=== PATIENT | female | born 1980 | race Caucasian/White ===

== ENCOUNTER → 2016-08-17 | Outpatient (CLI) | payer BC ==
[2016-08-17 09:54] LABS: HEMOGLOBIN 14.5 gm/dl (12.3-15.3); RED BLOOD COUNT 4.84 M/UL (4.00-5.10); WHITE BLOOD COUNT 4.8 K/UL (4.5-11.0)
[2016-08-17 10:13] LABS: BUN/CREATININE RATIO 17 (0-10)
== END ==
LOC: LAB 08:33
PROVIDERS: Nurse Practitioner
DX: R53.83 Other fatigue (principal); R63.5 Abnormal weight gain; R73.03 Prediabetes
CPT/HCPCS: 36415; 80048; 80061; 83036; 84443; 85027; 93005

== ENCOUNTER → 2016-11-10 | Outpatient (CLI) | payer BC | LOC: RAD 17:51 | DX: R10.0 Acute abdomen (principal) | CPT/HCPCS: 74022 ==

== ENCOUNTER → 2020-05-26 | Outpatient (CLI) | payer BC, OTHER | LOC: RAD 10:15 | DX: M54.2 Cervicalgia (principal); M43.8X2 Other specified deforming dorsopathies, cervical region | CPT/HCPCS: 72040 ==

== ENCOUNTER 2020-09-02 05:21 | Emergency (ER) | payer BC, OTHER ==
[2020-09-02 05:43] LABS: HEMOGLOBIN 13.8 gm/dl (12.3-15.3); RED BLOOD COUNT 4.43 M/UL (4.00-5.10); WHITE BLOOD COUNT 7.5 K/UL (4.5-11.0)
[2020-09-02 06:02] LABS: BUN/CREATININE RATIO 12 (0-10)
== END 2020-09-02 06:25 | disposition home or self-care (01) ==
LOC: ER1 05:21
PROVIDERS: Emergency Medicine
DX: R00.2 Palpitations (principal)
CPT/HCPCS: 71045; 80053; 82550; 82553; 83735; 83874; 84100; 84439; 84443; 84484; 85025; 85610; 85730; 93005; 99285

== ENCOUNTER → 2020-09-18 | Outpatient (CLI) | payer BC, OTHER | LOC: ECHO 12:52 | DX: R07.9 Chest pain, unspecified (principal); R06.02 Shortness of breath; I34.0 Nonrheumatic mitral (valve) insufficiency; I07.1 Rheumatic tricuspid insufficiency | CPT/HCPCS: ECHO; 93306 ==

== ENCOUNTER → 2021-01-26 | Outpatient (CLI) | payer BC ==
[2021-01-26 08:55] LABS: BUN/CREATININE RATIO 18 (0-10)
== END ==
LOC: LAB 07:50
PROVIDERS: Internal Medicine
DX: R74.8 Abnormal levels of other serum enzymes (principal)
CPT/HCPCS: 36415; 80053

== ENCOUNTER → 2021-07-08 | Outpatient (CLI) | payer BC | LOC: RAD 09:43 | DX: R05.9 Cough, unspecified (principal); R10.9 Unspecified abdominal pain | CPT/HCPCS: 71046; 74019 ==